=== PATIENT | female | born 1975 | race Caucasian/White ===

== ENCOUNTER 2017-03-20 20:49 | Emergency (ER) | payer OTHER ==
[~2017-03-20] VITALS: Ht 165.1 cm; Wt 126.9 kg
[~2017-03-20 20:49] MED LIST: ABILIFY30 MG PO; ADVIL200 MG PO; ALPRAZOLAM0.5 MG PO; B-100 COMPLEX1 EACH PO; BUSPAR10 MG PO; CYMBALTA30 MG PO; CYMBALTA60 MG PO; DEPAKOTE ER500 MG PO; DEPAKOTE500 MG PO; FISH OIL300 MG PO; MULTIPLE VITAM1 EACH PO; OXAYDO5 MG PO; VITAMIN D32000 UNI1 PO; ZOFRAN4 MG PO
[2017-03-20] MEDS ORDERED: PERCOCET 5/31 TABLET PO (22:51)
[2017-03-20 22:59] VITALS: BP 137/95
== END 2017-03-20 23:00 | disposition home or self-care (01) ==
LOC: EME 20:49
DX: S05.02XA Injury of conjunctiva and corneal abrasion without foreign body, left eye, initial encounter (principal); F17.200 Nicotine dependence, unspecified, uncomplicated
CPT/HCPCS: 99281; 99284

== ENCOUNTER 2017-04-24 13:01 | Emergency (ER) | payer OTHER ==
[~2017-04-24] VITALS: Ht 165.1 cm; Wt 126.0 kg
[~2017-04-24 13:01] MED LIST changes: +PERCOCET 5/31 TABLET PO
[2017-04-24 13:50] LABS: HEMATOCRIT 38.8 % (36.0-46.0); MCH 32.2 PG (29.0-34.0); MCHC 35.3 G/DL (30.0-36.0); MCV 91.1 FL (83-99); MEAN PLAT.VOLUME 9.2 uM^3 (9.5-12.4); PLATELET COUNT 306 K/uL (156-360); RBC DIS.WIDTH-CV 12.6 % (11.8-14.6); RBC DIS.WIDTH-SD 41.8 % (39-53); RED BLOOD COUNT 4.26 M/uL (3.80-5.20); WHITE BLOOD COUNT 12.4 K/uL (4.1-10.2)
[2017-04-24 13:58] LABS: CHLORIDE 101 mEq/L (99-109); POTASSIUM 3.3 mEq/L (3.7-5.4); SODIUM 138 mEq/L (136-147)
[2017-04-24 14:01] LABS: GLUCOSE 101 mg/dL (70-99)
[2017-04-24 14:02] LABS: ANION GAP 10 MEQ/L (2-14)
[2017-04-24 14:03] LABS: TOTAL BILIRUBIN 0.2 mg/dL (0.0-1.0)
[2017-04-24 14:04] LABS: ALKALINE PHOSPHATASE 105 IU/L (3-129); GFR ESTIMATE (CALCULATED) > 59 mL/min/
[2017-04-24 14:05] LABS: UREA NITROGEN (BUN) 7 mg/dL (9-23)
[2017-04-24 14:08] LABS: LIPASE 33 U/L (1.0-51.0)
[2017-04-24 14:13] LABS: QUANTITATIVE HCG < 4.0 MIU/ML
[2017-04-24 16:15] VITALS: BP 124/81
== END 2017-04-24 16:16 | disposition home or self-care (01) ==
LOC: EME 13:01
PROVIDERS: Nurse Practitioner Family
DX: K59.00 Constipation, unspecified (principal); R10.30 Lower abdominal pain, unspecified; K21.9 Gastro-esophageal reflux disease without esophagitis; Z88.0 Allergy status to penicillin; Z72.0 Tobacco use
CPT/HCPCS: 74020; 80053; 81003; 83690; 84702; 85027; 99281; 99284

== ENCOUNTER 2018-01-25 16:17 | Emergency (ER) | payer SELFPAY ==
[~2018-01-25] VITALS: Ht 165.1 cm; Wt 126.4 kg
[2018-01-25 17:13] LABS: HEMATOCRIT 34.6 % (36.0-46.0); HEMOGLOBIN 12.4 G/DL (11.9-15.5); MCH 33.4 PG (29.0-34.0); MCHC 35.8 G/DL (30.0-36.0); MCV 93.3 FL (83-99); PLATELET COUNT 289 K/uL (156-360); RBC DIS.WIDTH-CV 12.9 % (11.8-14.6); RBC DIS.WIDTH-SD 43.7 % (39-53); RED BLOOD COUNT 3.71 M/uL (3.80-5.20); WHITE BLOOD COUNT 9.1 K/uL (4.1-10.2)
[2018-01-25 17:19] LABS: APPEARANCE SL.HAZY ((CLEAR)); BILIRUBIN MODERATE; BLOOD NEGATIVE; COLOR AMBER ((YELLOW)); GLUCOSE (STRIP) NEGATIVE; KETONES 5; LEUKOCYTES TRACE; NITRITE NEGATIVE; PROTEIN (STRIP) 100; SPECIFIC GRAVITY 1.031 (1.000-1.030)
[2018-01-25 17:20] LABS: ICTOTEST ND
[2018-01-25 17:22] LABS: CHLORIDE 100 mEq/L (99-109); POTASSIUM 3.7 mEq/L (3.7-5.4); SODIUM 138 mEq/L (136-147)
[2018-01-25 17:24] LABS: GLUCOSE 106 mg/dL (70-99)
[2018-01-25 17:27] LABS: SERUM ETHYL ALCOHOL < 10 mg/dL
[2018-01-25 17:28] LABS: CREATININE 0.8 mg/dL (0.6-1.3); GFR ESTIMATE (CALCULATED) > 59 mL/min/
[2018-01-25 17:30] LABS: UREA NITROGEN (BUN) 5 mg/dL (9-23)
[2018-01-25 17:31] LABS: SALICYLATE < 5.0 MG/DL (15-30)
[2018-01-25 17:32] LABS: ACETAMINOPHEN (TYLENOL) < 10 mcg/mL (10-30)
[2018-01-25 17:35] LABS: COCAINE NEGATIVE (150 ng/mL); METHAMPHETAMINE PRESUMPTIVE POSITIVE (500 ng/mL); PHENCYCLIDINE NEGATIVE (25 ng/mL); THC CANNABINOIDS NEGATIVE (50 ng/mL)
[2018-01-25 17:36] LABS: AMPHETAMINE NEGATIVE (500 ng/mL); BARBITURATES NEGATIVE (200 ng/mL); BENZODIAZEPINES NEGATIVE (150 ng/mL); BUPRENORPHINE NEGATIVE (10 ng/mL); METHADONE NEGATIVE (200 ng/mL); OPIATES (MORPHINE) NEGATIVE (100 ng/mL); OXYCODONE NEGATIVE (100 ng/mL); PROPOXYPHENE NEGATIVE (300 ng/mL); TRICYCLIC ANTIDEPRESSANTS NEGATIVE (300 ng/mL)
[2018-01-25 17:39] LABS: BACTERIA RARE /HPF; EPITHELIAL CELLS RARE /HPF; MUCUS 1+ /LPF; UCUL ADDED? YES
[2018-01-25 21:11] VITALS: BP 136/73
== END 2018-01-25 21:13 ==
LOC: EME 16:17
PROVIDERS: Emergency Medicine
DX: R45.851 Suicidal ideations (principal); F31.4 Bipolar disorder, current episode depressed, severe, without psychotic features; F60.9 Personality disorder, unspecified; K21.9 Gastro-esophageal reflux disease without esophagitis; Z88.0 Allergy status to penicillin; F17.200 Nicotine dependence, unspecified, uncomplicated
CPT/HCPCS: 80048; 81003; 81025; 85027; 87086; 90837; 99281; 99285; G0480